=== PATIENT | female | born 1995 | race Caucasian/White ===

== ENCOUNTER 2016-11-27 13:19 | Emergency (ER) | payer OTHER ==
[~2016-11-27] VITALS: Ht 175.3 cm; Wt 64.9 kg
[2016-11-27 13:26] VITALS: TEMP 36.6; Ht 175.3 cm; Wt 64.9 kg
[2016-11-27] MEDS ORDERED: BCPILLS PO (13:43)
--- NOTE | 2016-11-27 16:53 | DIAGNOSTIC IMAGING REPORT ---
ULTRASOUND VENOUS DOPPLER LWR EXT BILA CLINICAL HISTORY: bilateral calf pain COMPARISON STUDY: No previous studies for comparison. FINDINGS: Real-time and color flow Doppler imaging were performed. Flow was seen within the femoral, popliteal and calf veins with no intraluminal thrombus demonstrated. The saphenous vein is patent. IMPRESSION: No evidence of lower extremity DVT. Electronically signed by: Renzo Arguello M.D. 11/27/2016 4:52 PM Dictated Date/Time: 11/27/2016 4:51 PM
[2016-11-27 17:17] VITALS: BP 112/69; PULSE 96; O2SAT 95
--- NOTE | 2016-11-29 11:06 | EMERGENCY ROOM VISIT NOTE ---
ED Visit Note First contact with patient: 14:25 Chief Complaint: Leg pain. History of Present Illness: Ms. Cross is a 21-year-old white female who ambulates into the ED complaining of bilateral posterior leg pain and bilateral wrist pain. Patient reports 3 days ago she was diagnosed with a urinary tract infection and prescribed Bactrim. After taking the Bactrim for 24 hours she reports she developed flulike symptoms with fevers and body aches and bilateral wrist pain and calf pain. She was reassessed and taken off Bactrim and reported placed on another antibiotics. Within 24 hours she reported her flulike symptoms resolved but she continues to have bilateral wrist pain or and calf pain. She did speak with the provider who prescribed her antibiotics and she was encouraged to come into the emergency department for evaluation of DVT. Currently patient describes her wrist and calf pain as an achy sensation. She rates her discomfort 5/10. Her wrist pain is likely related over the anterior aspect of the lower forearm and extends to the bases of the metacarpals bilaterally and her calf pain starts just superior to the popliteal area and extends to the mid gastrocnemius. Her pain is nonradiating. She has not identified any aggravating or alleviating factors related to the pain. She has not taken any medication for pain prior to arrival at the hospital. She denies recent trauma, fevers, chills, sweats, skin eruptions, skin color changes, chest pain, palpitations, shortness of breath, abdominal pain, nausea, vomiting , extremity weakness/numbness/tingling, previous clots, claudication, cramping, recent surgery/inactivity/extended travel, previous similar reactions. Review of Systems: As noted above in history of present illness. All body systems were reviewed and found to be negative as noted above. Past Medical History: Urinary tract infections, status post wisdom teeth extraction. Current Medications: control pills. Allergies to Medications: Patient denies. Social History: Patient is not employed; she feels safe in her home environment ; she denies tobacco use and admits to alcohol use. Physical Examination: Vital Signs: Date Time Temp Pulse Resp B/P Pulse Ox O2 Delivery O2 Flow Rate FiO2 11/27/16 17:17 96 18 112/69 95 11/27/16 15:05 80 16 107/63 99 Room Air 11/27/16 13:26 36.6 89 18 127/76 97 Room Air GENERAL: 21-year-old female in no acute distress, nontoxic-appearing, afebrile and hemodynamically stable. NEUROLOGICAL: Awake, alert and oriented to person, place and time. Answering questions appropriately and following commands. Normal gait. Good hand eye coordination. No focal motor sensory deficits. SKIN: Warm, dry and pink. No soft tissue eruptions or trauma noted. HEENT: Atraumatic and normocephalic. PERRLA. Sclera white and conjunctiva pink. No drainage from naris. Oral cavity moist and pink. Pharynx is nonerythematous or edematous. Speech normal. No lymphadenopathy. Trachea midline. No jugular venous distention. BACK: No tenderness over the bony spine. No CVA tenderness. THORAX: Lungs sounds are clear to auscultation and equal bilaterally with symmetrical chest wall. No wheezing, rales or rhonchi. No crepitus, tenderness , subcutaneous air or deformities noted. HEART: Regular rate and rhythm. No gallops, rubs or murmurs are appreciated. ABDOMEN: Flat, soft and nontender. Positive bowel sounds in all quadrants. No guarding, rigidity or organomegaly. LOWER EXTREMITIES: No gross bony deformity. No tenderness in the shoulder, elbow, forearm, wrist or hand. 5/5 muscle strength in flexion and extension of the elbow, pronation and supination of the forearms, flexion, extension and radial and ulnar deviation of the wrist and flexion and extension of all fingers. Throughout the hand the skin was warm and pink and capillary refill was brisk. She was able to distinguish light sensations through all dermatomes. UPPER EXTREMITIES: No gross bony deformity. No tenderness in the hips, knees, calves, ankles or feet. 5/5 muscle strength in flexion and extension of the knees, plantar flexion and dorsiflexion of the ankle and flexion and extension of all the toes. No calf tenderness or cords. Throughout the feet the skin was warm and dry and capillary refill is brisk. She is able to distinguish light sensations through all dermatomes. ED Course: Patient is assessed as noted above. I did have a lengthy conversation with the patient and at the end of our discussion she did request that ultrasound be done on her legs to rule out blood clots and did not feel x-rays were needed for her wrists. Bilateral Venous Doppler Ultrasounds: Were reviewed by myself and read by the radiologist and shows no evidence of DVT. Patient was educated about tonight's findings and instructed on her treatment plan; she verbalized understanding and agreement with this plan. Clinical Impression: Bilateral calf pain. Bilateral wrist pain. Disposition: Patient discharged home in stable condition; prior to departure she was reassessed and subjectively reported that she was pain and symptom-free. Plan: Patient was encouraged to alternate ibuprofen and acetaminophen as needed for pain. Patient was encouraged to follow-up at [facility] for recheck if no better in 3-5 days. Patient was encouraged return the ED for worsening/uncontrolled pain, extremity weakness/numbness/tingling or any new/concerning symptoms.
== END 2016-11-27 17:19 | disposition home or self-care (01) ==
LOC: C.EDB 13:20 → C.EDD 17:19
DX: M79.662 Pain in left lower leg (principal); M79.661 Pain in right lower leg; M25.531 Pain in right wrist; M25.532 Pain in left wrist; Z87.440 Personal history of urinary (tract) infections